=== PATIENT | male | born 1960 | race Caucasian/White ===

== ENCOUNTER 2019-11-05 05:51 | Day surgery (SDC) | payer OTHER ==
[2019-11-04 10:43] LABS: BASOPHILS # (AUTO) 0.1 X10'3 (0-0.2); BASOPHILS % (AUTO) 0.8 % (0-1); EOSINOPHILS # (AUTO) 0.1 X10'3 (0-0.9); EOSINOPHILS % (AUTO) 1.5 % (0-6); HEMATOCRIT 44.3 % (42.0-52.0); HEMOGLOBIN 15.3 g/dl (14.0-17.9); LYMPHOCYTES # (AUTO) 2.1 X10'3 (1.1-4.8); LYMPHOCYTES % (AUTO) 28.9 % (21-51); MEAN CORPUSCULAR HEMOGLOBIN 34.1 PG (27.0-31.0); MEAN CORPUSCULAR HGB CONC 34.5 g/dL (33.0-36.5); MEAN CORPUSCULAR VOLUME 98.8 FL (78-98); MEAN PLATELET VOLUME 8.1 FL (7.4-10.4); MONOCYTES # (AUTO) 0.8 X10'3 (0-0.9); MONOCYTES % (AUTO) 10.3 % (2-12); NEUTROPHILS # (AUTO) 4.3 X10'3 (1.8-7.7); NEUTROPHILS % (AUTO) 58.5 % (42-75); PLATELET COUNT 197 X10'3 (140-440); RED BLOOD COUNT 4.48 X10'6 (4.70-6.10); RED CELL DISTRIBUTION WIDTH 12.4 % (11.5-14.5); WHITE BLOOD COUNT 7.4 X10'3 (4.5-11.0)
[2019-11-04 10:52] LABS: ALBUMIN 3.7 G/DL (3.4-5.0); ANION GAP 5 (8-16); BLOOD UREA NITROGEN 15 MG/DL (7-18); BUN/CREATININE RATIO 16.7 (5.4-32.0); CALCIUM 8.4 MG/DL (8.5-10.1); CHLORIDE 106 MMOL/L (99-107); GLUCOSE 113 MG/DL (70-104); POTASSIUM 4.2 MMOL/L (3.5-5.1); SODIUM 138 MMOL/L (135-145); TOTAL CARBON DIOXIDE 27.1 MMOL/L (24-32); eGFR 87 ML/MIN
[2019-11-04 10:58] LABS: PARTIAL THROMBOPLASTIN TIME 28 SECONDS (22-32)
[~2019-11-05] VITALS: Ht 177.8 cm; Wt 111.3 kg
[2019-11-05] VITALS (12 sets, daily range): BP systolic 125–145; BP diastolic 70–117
[2019-11-05] MEDS ORDERED: LORazepam 0.5 MG tablet PO PRN (06:15)
[2019-11-05] MEDS ORDERED: diphenhydrAMINE 25mg capsule PO PRN (06:15)
[2019-11-05] MEDS ORDERED: METO25TA6 PO (06:27)
[2019-11-05] MEDS ORDERED: SIMV-45 PO (06:27)
[2019-11-05] MEDS ORDERED: ASPI-611 PO (06:27)
[2019-11-05] MEDS: normal saline 1,000 ML IV SCH ×2 (06:55→11:04)
[2019-11-05] MEDS ORDERED: LIDOcaine/PRILOcaine 5gm cream TP ONE (07:00)
[2019-11-05] MEDS ORDERED: verapamil 2.5 mg/ml inj IV ONE (07:32)
[2019-11-05] MEDS ORDERED: midazolam 2 mg/2 ml injection ONE (07:33)
[2019-11-05] MEDS ORDERED: iohexol 350MG/ML 100ml bottle IV ONE (07:33)
[2019-11-05] MEDS ORDERED: LIDOcaine 1% (10mg/ml)w/preservative injection 20ml MDV ONE (07:33)
[2019-11-05] MEDS ORDERED: heparin 1,000unit/ml 10ml vial 10 ML ONE (07:33)
[2019-11-05] MEDS ORDERED: iohexol 350 MG/ML 50ML vial IV ONE (07:33)
[2019-11-05] MEDS ORDERED: fentaNYL/PF 50MCG/1 ML 2ML syringe ONE (07:33)
[2019-11-05] MEDS ORDERED: nitroGLYCERIN-Tridil 50MG/D5W 250 ML IV ONE (07:35)
--- NOTE | 2019-11-05 10:55 | NUR ---
Removed pt vascular band. Pt tolerated this well. Site stable, no s/s of bleeding or infection. pt resting in bed. pt has eaten 100% of breakfast tray. 450ml oral fluid intake. IV fluids running as ordered.
--- NOTE | 2019-11-05 11:12 | NUR ---
Problems reprioritized. Patient report given, questions answered & plan of care reviewed with Berenice CODY.
--- NOTE | 2019-11-05 11:39 | NUR ---
Rec'd report from TERRY HodgePt sitting up-A&O X4-Rt wrist site CDI w/sylvia wrap-water provided Addendum: 11/05/19 at 1141 by Tessa Ng RN Amended: Links added.
== END 2019-11-05 14:00 | disposition home or self-care (01) ==
LOC: SSTAY O 05:51
PROVIDERS: ATTEND Internal Medicine Cardiovascular Disease
DX: R06.02 Shortness of breath (principal); R53.83 Other fatigue; I25.10 Atherosclerotic heart disease of native coronary artery without angina pectoris; E78.5 Hyperlipidemia, unspecified; I10 Essential (primary) hypertension; G47.30 Sleep apnea, unspecified; Z95.1 Presence of aortocoronary bypass graft; Z79.82 Long term (current) use of aspirin; Z79.899 Other long term (current) drug therapy; Z98.890 Other specified postprocedural states; Z95.5 Presence of coronary angioplasty implant and graft
CPT/HCPCS: 36415; 80048; 85025; 85610; 85730; 93005; 93458; 99152; C1769; C1894; J1644; J2001; J2250; J3010; J7030; Q0163; Q9967; A4620; A5120; J3490

== ENCOUNTER 2021-10-22 02:05 | Emergency (ER) | payer OTHER ==
[~2021-10-22] VITALS: Ht 177.8 cm; Wt 109.1 kg
[~2021-10-22 02:05] MED LIST: ASPI-611 PO; LOP25T PO; SIMV-45 PO
[2021-10-22 02:31] VITALS: BP 170/102
== END 2021-10-22 03:44 | disposition home or self-care (01) ==
LOC: ER 02:06
DX: I10 Essential (primary) hypertension (principal)
CPT/HCPCS: 99283